=== PATIENT | female | born 1965 | race Caucasian/White ===

== ENCOUNTER 2017-05-31 19:28 | Emergency (ER) | payer SELFPAY ==
[~2017-05-31] VITALS: Ht 160 cm; Wt 63.5 kg
[2017-05-31 19:30] VITALS: BP_SYST 177
--- NOTE | 2017-05-31 19:43 | NUR ---
Placed in hallway. Report given to Prerna MARTINEZ.
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
--- NOTE | 2017-05-31 19:50 | NUR ---
EMERSON Hernandez at bedside for medical evaluation.
[2017-05-31] MEDS ORDERED: KETOROLAC TROMETHAMINE 60 MG/2 ML VIAL IM ONE (20:00)
[2017-05-31] MEDS ORDERED: ONDANSETRON 4 MG ODT TAB PO ONE (20:15)
--- NOTE | 2017-05-31 21:00 | NUR ---
No adverse reactions noted after medication administration. Will continue to monitor.
[2017-05-31 21:32] VITALS: BP_SYST 146
--- NOTE | 2017-05-31 21:32 | NUR ---
Patient given written and verbal discharge instructions and verbalizes understanding. ER [facility] discussed with patient the results and treatment provided. Patient in stable condition. ID arm band removed. Rx of Mobic and Soma given. Patient educated on pain management and to follow up with PMD. Pain Scale 2/10 tolerable to patient. Opportunity for questions provided and answered.
== END 2017-05-31 21:32 | disposition home or self-care (01) ==
LOC: SED 19:28
DX: S16.1XXA Strain of muscle, fascia and tendon at neck level, initial encounter (principal); M54.12 Radiculopathy, cervical region; R03.0 Elevated blood-pressure reading, without diagnosis of hypertension; I10 Essential (primary) hypertension; Z90.710 Acquired absence of both cervix and uterus; Z88.8 Allergy status to other drugs, medicaments and biological substances; V89.2XXA Person injured in unspecified motor-vehicle accident, traffic, initial encounter; Y93.89 Activity, other specified; Y92.488 Other paved roadways as the place of occurrence of the external cause; Y99.8 Other external cause status
CPT/HCPCS: 70450; 72125; 96372; 99284; J1885; Q0162